=== PATIENT | male | born 1975 | race Caucasian/White ===

== ENCOUNTER 2018-06-22 02:18 | Emergency (ER) | payer OTHER ==
[~2018-06-22] VITALS: Ht 185.4 cm; Wt 81.0 kg
[2018-06-22] MEDS ORDERED: ACETAMINOPHEN 500MG TABLET PO ONE (05:15)
[2018-06-22] MEDS ORDERED: CEPHALEXIN 250MG CAPSULE PO ONE (05:15)
[2018-06-22] MEDS ORDERED: SULFAMETHOXAZOLE/TRIMETHOPRIM 800/160MG TABLET PO ONE (05:15)
[2018-06-22 07:15] VITALS: BP 128/89
== END 2018-06-22 07:19 | disposition home or self-care (01) ==
LOC: ER 02:18
DX: L03.113 Cellulitis of right upper limb (principal); B35.1 Tinea unguium; I10 Essential (primary) hypertension
CPT/HCPCS: 73110; 99284